=== PATIENT | female | born 1955 | race Caucasian/White ===

== ENCOUNTER 2020-07-22 08:28 | Outpatient (REF) | payer MEDICARE, SELFPAY ==
[2020-07-22 12:41] LABS: Alanine Aminotransferase 19 U/L (0-31); Albumin Level 4.5 g/dL (3.5-5.0); Alkaline Phosphatase 66 U/L (39-117); Anion Gap 12 (12-20); Aspartate Amino Transferase 18 U/L (5-31); Bilirubin Total 0.4 mg/dL (0.0-1.0); Blood Urea Nitrogen 11 mg/dL (9-16); Calcium 8.8 mg/dL (8.4-10.2); Carbon Dioxide 29 mmol/L (22-29); Chloride 105 mmol/L (96-108); Cholesterol 201 mg/dL; Estimated Glomerular Filt Rate > 60; Glucose Fasting 91 mg/dL (60-99); HDL Cholesterol 45 mg/dL; LDL Cholesterol Calculated 131 mg/dl; Potassium 4.4 mmol/l (3.3-5.1); Sodium 142 mmol/L (135-145); Total Protein 7.1 g/dL (6.5-8.0); Triglycerides 125 mg/dL
== END 2020-07-22 08:29 | disposition home or self-care (01) ==
LOC: HO.MANLR 08:28
PROVIDERS: PCP Internal Medicine; Visit Provider Internal Medicine
DX: R03.0 Elevated blood-pressure reading, without diagnosis of hypertension (principal); E78.00 Pure hypercholesterolemia, unspecified
CPT/HCPCS: 80053; 80061

== ENCOUNTER 2021-07-28 08:41 | Outpatient (REF) | payer MEDICARE, SELFPAY ==
[2021-07-28 11:53] LABS: Alanine Aminotransferase 17 U/L (0-31); Albumin Level 4.4 g/dL (3.5-5.0); Alkaline Phosphatase 59 U/L (39-117); Anion Gap 11 (12-20); Aspartate Amino Transferase 17 U/L (5-31); Bilirubin Total 0.5 mg/dL (0.0-1.0); Blood Urea Nitrogen 10 mg/dL (9-16); Calcium 9.2 mg/dL (8.4-10.2); Carbon Dioxide 29 mmol/L (22-29); Chloride 107 mmol/L (96-108); Cholesterol 186 mg/dL; Estimated Glomerular Filt Rate > 60; Glucose Fasting 84 mg/dL (60-99); HDL Cholesterol 41 mg/dL; LDL Cholesterol Calculated 126 mg/dl; Potassium 4.3 mmol/L (3.3-5.1); Sodium 143 mmol/L (135-145); Total Protein 6.8 g/dL (6.5-8.0); Triglycerides 96 mg/dL
== END 2021-07-28 08:42 | disposition home or self-care (01) ==
LOC: HO.MANLDS 08:41
PROVIDERS: PCP Internal Medicine; Visit Provider Internal Medicine
DX: R03.0 Elevated blood-pressure reading, without diagnosis of hypertension (principal); E78.00 Pure hypercholesterolemia, unspecified
CPT/HCPCS: 36415; 80053; 80061

== ENCOUNTER 2023-08-23 08:09 | Outpatient (REF) | payer MEDICARE, SELFPAY ==
[2023-08-23 13:13] LABS: MANUAL DIFF FLAG NO
[2023-08-23 13:29] LABS: Basophils Absolute Auto 0.1 X10*3/uL (0.0-0.2); Basophils Percent Auto 1.2 % (0-2); Eosinophils Absolute Auto 0.1 X10*3/uL (0.0-0.4); Eosinophils Percent Auto 2.4 % (0-4); Hematocrit 43.5 % (37.0-47.0); Hemoglobin 13.6 g/dl (12.0-16.0); Imm Gran Abs Auto 0.01 X10*3/uL (0.00-0.03); Imm Gran Pct Auto 0.2 % (0.0-0.4); Lymphocytes Absolute Auto 1.1 X10*3/uL (1.2-4.9); Lymphocytes Percent Auto 26.2 % (20-40); Mean Corpuscular HGB Conc 31.3 g/dl (31.0-35.0); Mean Corpuscular Hemoglobin 29.1 pg (27.0-33.0); Mean Corpuscular Volume 93.1 fL (80.0-98.0); Mean Platelet Volume 10.2 fL (9.4-12.3); Monocytes Absolute Auto 0.5 X10*3/uL (0.1-1.2); Monocytes Percent Auto 11.6 % (2-11); Neutrophils Absolute Auto 2.5 x10*3/uL (2.0-8.3); Neutrophils Percent Auto 58.4 % (45-73); Platelet Count 320 X10*3/uL (160-400); Red Blood Count 4.67 X10*6/uL (4.20-5.50); Red Cell Distribution Width 14.2 % (11.0-16.0); White Blood Count 4.2 X10*3/uL (4.8-10.8)
[2023-08-23 14:25] LABS: Alanine Aminotransferase 17 U/L (0-31); Albumin Level 4.3 g/dL (3.5-5.0); Alkaline Phosphatase 63 U/L (39-117); Anion Gap 11 (12-20); Aspartate Amino Transferase 21 U/L (5-31); Bilirubin Total 0.5 mg/dL (0.0-1.0); Blood Urea Nitrogen 10 mg/dL (9-16); Calcium 9.1 mg/dL (8.4-10.2); Carbon Dioxide 29 mmol/L (22-29); Chloride 107 mmol/L (96-108); Cholesterol 185 mg/dL (<200); Estimated Glomerular Filt Rate > 60; Glucose Random 79 mg/dL (60-115); HDL Cholesterol 46 mg/dL (>40); LDL Cholesterol Calculated 120 mg/dL (<100); Potassium 3.7 mmol/L (3.3-5.1); Sodium 143 mmol/L (135-145); Triglycerides 98 mg/dL (<150)
== END 2023-08-23 08:10 | disposition home or self-care (01) ==
LOC: HO.MANLDS 08:09
PROVIDERS: Visit Provider Physician Assistant
DX: Z00.00 Encounter for general adult medical examination without abnormal findings (principal); Z20.2 Contact with and (suspected) exposure to infections with a predominantly sexual mode of transmission
CPT/HCPCS: 36415; 80053; 80061; 85025

== ENCOUNTER 2024-08-28 08:23 | Outpatient (REF) | payer MEDICARE, SELFPAY ==
[2024-08-28 13:25] LABS: MANUAL DIFF FLAG NO
[2024-08-28 13:37] LABS: Basophils Absolute Auto 0.1 X10*3/uL (0.0-0.2); Basophils Percent Auto 0.8 % (0-2); Eosinophils Absolute Auto 0.1 X10*3/uL (0.0-0.4); Eosinophils Percent Auto 1.3 % (0-4); Hematocrit 43.1 % (37.0-47.0); Hemoglobin 13.7 g/dl (12.0-16.0); Imm Gran Abs Auto 0.02 X10*3/uL (0.00-0.03); Imm Gran Pct Auto 0.3 % (0.0-0.4); Lymphocytes Percent Auto 17.1 % (20-40); Mean Corpuscular HGB Conc 31.8 g/dl (31.0-35.0); Mean Corpuscular Hemoglobin 29.4 pg (27.0-33.0); Mean Corpuscular Volume 92.5 fL (80.0-98.0); Mean Platelet Volume 10.2 fL (9.4-12.3); Monocytes Absolute Auto 0.6 X10*3/uL (0.1-1.2); Monocytes Percent Auto 9.7 % (2-11); Neutrophils Absolute Auto 4.2 x10*3/uL (2.0-8.3); Neutrophils Percent Auto 70.8 % (45-73); Platelet Count 328 X10*3/uL (160-400); Red Blood Count 4.66 X10*6/uL (4.20-5.50); Red Cell Distribution Width 13.9 % (11.0-16.0)
[2024-08-28 14:07] LABS: Alanine Aminotransferase 26 U/L (0-31); Albumin Level 4.3 g/dL (3.5-5.0); Alkaline Phosphatase 60 U/L (39-117); Anion Gap 9 (12-20); Aspartate Amino Transferase 29 U/L (5-31); Bilirubin Total 0.5 mg/dL (0.0-1.0); Blood Urea Nitrogen 10 mg/dL (9-16); Calcium 9.1 mg/dL (8.4-10.2); Carbon Dioxide 29 mmol/L (22-29); Chloride 106 mmol/L (96-108); Cholesterol 188 mg/dL (<200); Estimated Glomerular Filt Rate > 60; Glucose Random 87 mg/dL (60-115); HDL Cholesterol 45 mg/dL (>40); LDL Cholesterol Calculated 120 mg/dL (<100); Sodium 140 mmol/L (135-145); Total Protein 6.9 g/dL (6.5-8.0); Triglycerides 116 mg/dL (<150)
== END 2024-08-28 08:24 | disposition home or self-care (01) ==
LOC: HO.MANLDS 08:23
PROVIDERS: Visit Provider Physician Assistant
DX: Z00.00 Encounter for general adult medical examination without abnormal findings (principal)
CPT/HCPCS: 36415; 80053; 80061; 85025

== ENCOUNTER 2025-08-28 08:16 | Outpatient (REF) | payer MEDICARE, SELFPAY ==
--- OUTSIDE RECORDS SUMMARY | 2025-08-28 08:30 | XMS_ITS | Encounter Summary ---
Author Organization [facility] Address [address] [place] [address] Phone Care Team Providers Care Steel Hanger Name Role Phone Patti Gonzalez Unavailable [phone] Sharif Bautista DO Unavailable Cheryl Travis CNM Unavailable Roscoe Low DO Unavailable Kelly Rush SUPERVISOR COMMISSARY PRODUCTION Unavailable Carmen Rodríguez SUPERVISOR COMMISSARY PRODUCTION Unavailable Nathaly Don MD Unavailable Denice Morales SUPERVISOR COMMISSARY PRODUCTION Unavailable [phone] Sharif Bautista DO Primary Care Provider [phone] Encounter Details Date Type Department Care Team (Late st Contact Info) Description 07/20/2018 Ancillary Orders Virtual Department [address] [place] [address] Sharif Bautista DO [address] [facility] [address] [place] [address] Screening for osteoporosis Social History Tobacco Use Types Packs/Day Years Used Date Smoking Tobacco: Never Assessed Comments No Sex and Gender Information Value Date Recorded Sex Assigned at Not on file Legal Sex Female 9:58 PM EDT Gender Identity Not on file Sexual Orientation Not on file documented as of this encounter Plan of Treatment Not on file documented as of this encounter Visit Diagnoses Diagnosis Screening for osteoporosis Special screening for osteoporosis documented in this encounter Care Teams Steel Hanger Relationship Specialty Start Date End Date Sharif Bautista DO [address] [place] [address] [email or web address] PCP - General Internal Medicine 08/31/17 Patti Gonzalez PA [address] [place] [address] Historical LMR Provider 07/19/17 2 Sharif Bautista DO [address] [place] [address] [email or web address] Historical LMR Provider 07/19/17 Cheryl Travis CNM [address] [place] [address] Historical LMR Provider 07/19/17 10/11/21 Roscoe Low DO [address] [place] [address] [facility], [place] [address] Historical LMR Provider 07/19/17 10/11/21 Kelly Rush NP [address] [place] [phone] Historical LMR Provider 07/19/17 2 Carmen Rodríguez NP [address] [place] [address] [email or web address] Historical LMR Provider 07/19/17 2 Nathaly Don MD [address] [place] [address], [facility] [address] [place] [address] [email or web address] Historical LMR Provider 07/19/17 Denice Morales NP [address] [place] [address] Historical LMR Provider 07/19/17 2 documented as of this encounter Additional Source Comments The information contained in this document represents components of the legal health record. It is not the complete legal health record.[facility]
--- OUTSIDE RECORDS SUMMARY | 2025-08-28 08:30 | XMS_ITS | Encounter Summary ---
Author Organization [facility] Address [address] [place] [address] Phone Care Team Providers Care Metal Fabricating Shop Helper Name Role Phone Sharif Bautista DO Unavailable Nathaly Don MD Unavailable Sharif Bautista DO Primary Care Provider [phone] Encounter Details Date Type Department Care Team (Late st Contact Info) Description 03/18/2022 Procedure Pass [facility], [facility] [address] [place], [place] [id number] Social History Tobacco Use Types Packs/Day Years Used Date Smoking Tobacco: Never Smokeless Tobacco: Never Alcohol Use Standard Drinks/Week Comments Yes 1 (1 standard drink = 0.6 oz pur e alcohol) 1-2 per month Comments No Sex and Gender Information Value Date Recorded Sex Assigned at Not on file Legal Sex Female 9:58 PM EDT Gender Identity Not on file Sexual Orientation Not on file documented as of this encounter Plan of Treatment Not on file documented as of this encounter Visit Diagnoses Not on filedocumented in this encounter Care Teams Metal Fabricating Shop Helper Relationship Specialty Start Date End Date Sharif Bautisat DO PCP - General Internal Medicine 08/31/17 Sharif Bautista DO Historical LMR Provider 07/19/17 Nathaly Don MD [address] [place] [address], [place] [address] [email or web address] Historical LMR Provider 07/19/17 documented as of this encounter Additional Source Comments The information contained in this document represents components of the legal health record. It is not the complete legal health record.[facility]
--- OUTSIDE RECORDS SUMMARY | 2025-08-28 08:30 | XMS_ITS | Encounter Summary ---
Author Organization [facility] Address [address] [place] [address] Phone Care Team Providers Care Bleaching Machine Operator Name Role Phone Sharif Bautista DO Unavailable Nathaly Don MD Unavailable Sharif Bautista DO Primary Care Provider [phone] Encounter Details Date Type Department Care Team (Late st Contact Info) Description 08/12/2023 Transcribe Orders Virtual Department [address] [place] [address] Sharif Bautista DO [address] [facility] [place] [address] [place] [address] [email or web address] Breast screening (Primary Dx) Social History Tobacco Use Types Packs/Day Years Used Date Smoking Tobacco: Never Smokeless Tobacco: Never Alcohol Use Standard Drinks/Week Comments Yes 1 (1 standard drink = 0.6 oz pur e alcohol) 1-2 per month Education Answer Date Recorded Are you interested in more education? Not on mainor e 01/29/2023 Are you concerned about learning? Not on file 01/29/2023 No 01/29/2023 No 01/29/2023 Digital Access Answer Date Recorded No 02/26/2023 No 02/26/2023 Reliable internet access at home? Not on file 02/26/2023 Device with a working camera? Not on file Comments No Sex and Gender Information Value Date Recorded Sex Assigned at Not on file Legal Sex Female 9:58 PM EDT Gender Identity Not on file Sexual Orientation Not on file documented as of this encounter Plan of Treatment Not on file documented as of this encounter Results * BI MAMMOGRAM SCREENING WITH TOMOSYNTHESIS WITH CAD (BILATERAL) (01/19/2024 8:51 AM EDT) Anatomical Region Laterality Modality Breast Left, Breast Right, Breast Bilateral Bila teral Mammography 01/19/2024 3:47 PM EDT Impressions 01/19/2024 3:49 PM EDT No mammographic evidence of malignancy in either breast. Annual screening mammography is recommended. BI-RADS 2 BENIGN The patient will be notified of the results and recommendations. Narrative 01/19/2024 3:49 PM EDT BI MAMMOGRAM SCREENING WITH TOMOSYNTHESIS WITH CAD (BILATERAL) Additional patient information: Screening. COMPARISON: Comparison is made with relevant prior imaging. Breast composition: The breast tissue is heterogeneously dense which may obscure small masses. FINDINGS: There are innumerable scattered punctate, amorphous and rim type calcifications present bilaterally, stable in appearance. No abnormal masses, suspicious calcifications, or other significant findings are identified mammographically in either breast. Procedure Note Cordelia Vernon MD - 01/19/2024 BI MAMMOGRAM SCREENING WITH TOMOSYNTHESIS WITH CAD (BILATERAL) Additional patient information: Screening. COMPARISON: Comparison is made with relevant prior imaging. Breast composition: The breast tissue is heterogeneously dense which mayobscure small masses. FINDINGS: There are innumerable scattered punctate, amorphous and rim typecalcifications present bilaterally, stable in appearance. No abnormal masses, suspicious calcifications, or other significantfindings are identified mammographically in either breast. IMPRESSION: No mammographic evidence of malignancy in either breast. Annual screening mammography is recommended. BI-RADS 2 BENIGN The patient will be notified of the results and recommendations. us Sharif A Bigda DO IMG MG EXAMS Final Result documented in this encounter Visit Diagnoses Diagnosis Breast screening- Primary Breast screening, unspecified Breast screening Breast screening, unspecified documented in this encounter Care Teams Bleaching Machine Operator Relationship Specialty Start Date End Date Sharif Bautista DO [email or web address] PCP - General Internal Medicine 08/31/17 ZeusSharif pittman DO Historical LMR Provider 07/19/17 aNthaly Don MD [address] [place] [address], [address] [place] [address] [email or web address] Historical LMR Provider 07/19/17 documented as of this encounter Additional Source Comments The information contained in this document represents components of the legal health record. It is not the complete legal health record.[facility]
--- OUTSIDE RECORDS SUMMARY | 2025-08-28 08:30 | XMS_ITS | Encounter Summary ---
Author Organization [facility] Address [address] [place] [address] Phone Care Team Providers Care Inspector Barrel Name Role Phone Patti Gonzalez Unavailable [phone] Sharif Bautista DO Unavailable Cheryl Travis CNM Unavailable Roscoe Low DO Unavailable [phone] Kelly Rush CAM MAKER Unavailable Carmen Rodríguez CAM MAKER Unavailable Nathaly Don MD Unavailable Denice Morales CAM MAKER Unavailable [phone] Sharif Bautista DO Primary Care Provider [phone] Encounter Details Date Type Department Care Team (Late st Contact Info) Description 12/05/2018 Ancillary Orders Virtual Department [address] [place] [address] Sharif Bautista DO [address] [facility] [place] [address] [place] [address] Osteopenia, unspecified location Social History Tobacco Use Types Packs/Day Years Used Date Smoking Tobacco: Never Assessed Comments No Sex and Gender Information Value Date Recorded Sex Assigned at Not on file Legal Sex Female 9:58 PM EDT Gender Identity Not on file Sexual Orientation Not on file documented as of this encounter Plan of Treatment Not on file documented as of this encounter Results * BD DXA AXIAL (SPINE) WITH HIP (12/06/2018 9:19 AM EST) Anatomical Region Laterality Modality Bone Density Bone Density 12/06/2018 9:40 AM EST Impressions 12/06/2018 9:44 AM EST Continued lumbar spine osteopenia with a statistically significant increase in bone density since the prior exam. New right hip osteoporosis. Left hip osteopenia (previously osteoporotic with a statistically significant increase in bone density since the prior exam). POS - [id number] Narrative 12/06/2018 9:44 AM EST COMPARISON: 05/11/2016. BONE DENSITY FINDINGS: History: This is a 63-year-old postmenopausal female with osteopenia. Evaluation of the lumbar spine and hips was performed. L2 excluded due to endplate sclerosis. Otherwise imaging felt to be technically adequate. Stable mild mid lumbar levoscoliosis. Total bone mineral density in the L1, L3 and L4 vertebral bodies was calculated at 0.811 gm/cm2 with a T-score of -2.2 falling within the WHO classification of osteopenia. Z-score of -0.4.Fracture risk increased. 3.2% increase in bone density since the prior exam which is significant. Total bone mineral density in the right hip was calculated at 0.637 gm/cm2 with a T-score of -2.5 falling within the WHO classification of osteoporosis. Z-score of -1.2. High fracture risk. Total bone mineral density in the left hip was calculated at 0.677 gm/cm2 with a T-score of -2.2 falling within the WHO classification of osteopenia. Z-score of -0.9. Fracture risk increased. 11.3% increase in bone density since the prior exam which is significant. Procedure Note Royce Moscoso MD - 12/06/2018 COMPARISON: 05/11/2016. BONE DENSITY FINDINGS: History: This is a 63-year-old postmenopausal female with osteopenia. Evaluation of the lumbar spine and hips was performed. L2 excluded due toendplate sclerosis. Otherwise imaging felt to be technically adequate.Stable mild mid lumbar levoscoliosis. Total bone mineral density in the L1, L3 and L4 vertebral bodies wascalculated at 0.811 gm/cm2 with a T-score of -2.2 falling within the WHOclassification of osteopenia. Z-score of -0.4.Fracture risk increased.3.2% increase in bone density since the prior exam which is significant. Total bone mineral density in the right hip was calculated at 0.637 gm/sy0dboj a T-score of -2.5 falling within the WHO classification ofosteoporosis. Z-score of -1.2. High fracture risk. Total bone mineral density in the left hip was calculated at 0.677 gm/fq7xbsd a T-score of -2.2 falling within the WHO classification ofosteopenia. Z-score of - 0.9. Fracture risk increased. 11.3% increasein bone density since the prior exam which is significant. IMPRESSION: Continued lumbar spine osteopenia with a statistically significantincrease in bone density since the prior exam. New right hiposteoporosis. Left hip osteopenia (previously osteoporotic with astatistically significant increase in bone density since the priorexam). POS - [id number] Sharif Bautista DO IMG BD BONE DENSITY DEXA Final R esult documented in this encounter Visit Diagnoses Diagnosis Osteopenia, unspecified location Osteopenia, unspecified location documented in this encounter Care Teams Inspector Barrel Relationship Specialty Start Date End Date Shar[place] [address] [email or web address] PCP - General Internal Medicine 08/31/17 Patit [place] [address] Historical LMR Provider 07/19/17 2 Sharif Bautista DO [address] [place] [address] Historical LMR Provider 07/19/17 Cheryl Travis CNM [address] [address] Historical LMR Provider 07/19/17 10/11/21 Roscoe Low DO [address] [place] [address] [facility], [place] [address] Historical LMR Provider 07/19/17 10/11/21 Kelly Rush NP [address] [place] [phone] Historical LMR Provider 07/19/17 2 Carmen Rodríguez NP [address] [place] [address] [email or web address] Historical LMR Provider 07/19/17 2 Nathaly Don MD [address] [place] [address] Historical LMR Provider 07/19/17 Denice Morales NP [address] [place] [address] Historical LMR Provider 07/19/17 2 documented as of this encounter Additional Source Comments The information contained in this document represents components of the legal health record. It is not the complete legal health record.[facility]
--- OUTSIDE RECORDS SUMMARY | 2025-08-28 08:30 | XMS_ITS | Encounter Summary ---
Author Organization [facility] Address [address] [place] [address] Phone Care Team Providers Care Certified Nursing Assistant Name Role Phone Patti Gonzalez Unavailable [phone] Sharif Bautista DO Unavailable Cheryl Travis CNM Unavailable Roscoe Low DO Unavailable Kelly Rush RETAIL PRODUCT DEMO SPECIALIST Unavailable Carmen Rodríguez RETAIL PRODUCT DEMO SPECIALIST Unavailable Nathaly Don MD Unavailable Denice Morales RETAIL PRODUCT DEMO SPECIALIST Unavailable [phone] Unknown, Unknown Primary Care Provider Sharif Mcconnell DO Primary Care Provider [phone] Encounter Details Date Type Department Care Team (Late st Contact Info) Description 07/24/2017 Ancillary Orders [facility], [facility] [address] [place] [address] Sharif Bautista DO [address] [facility] [address] [place], [place] [id number] Visit for screening mammogram Social History Tobacco Use Types Packs/Day Years Used Date Smoking Tobacco: Never Assessed Comments Unknown Sex and Gender Information Value Date Recorded Sex Assigned at Not on file Legal Sex Female 9:58 PM EDT Gender Identity Not on file Sexual Orientation Not on file documented as of this encounter Plan of Treatment Not on file documented as of this encounter Results * BI MAMMOGRAM SCREENING WITH TOMOSYNTHESIS WITH CAD (BILATERAL) (08/31/2017 9:15 AM EST) Anatomical Region Laterality Modality Breast Left, Breast Right, Breast Bilateral Bila teral Mammography 08/31/2017 10:4 1 AM EST Impressions 08/31/2017 10:45 AM EST Normal negative. Annual screening is recommended. Patient notified by letter. BI-RADS CATEGORY: 1 - Negative. DENSITY: There are scattered fibroglandular densities. POS: [id number] Narrative 08/31/2017 10:45 AM EST Screening Mammogram, bilateral with utilization of computer aided detection and tomosynthesis as well as 2-D C view imaging. Comparison: Dating back to 2013 and the most recent prior examination dated 16. Findings: No suspicious masses or suspicious clustered microcalcifications are present. No architectural distortion or significant asymmetry is present. Breasts are composed of scattered fibroglandular elements. Procedure Note Felice Marin MD - 08/31/2017 Screening Mammogram, bilateral with utilization of computer aideddetection and tomosynthesis as well as 2-D C view imaging. Comparison: Dating back to 2013 and the most recent prior examinationdated 16. Findings: No suspicious masses or suspicious clustered microcalcificationsare present. No architectural distortion or significant asymmetry ispresent. Breasts are composed of scattered fibroglandular elements. IMPRESSION: Normal negative. Annual screening is recommended. Patient notified by letter. BI-RADS CATEGORY: 1 - Negative. DENSITY: There are scattered fibroglandular densities. POS: [id number] us Sharif A Bigda DO IMG MG EXAMS Final Result documented in this encounter Visit Diagnoses Diagnosis Visit for screening mammogram Visit for screening mammogram documented in this encounter Care Teams Certified Nursing Assistant Relationship Specialty Start Date End Date Unknown, Unknown, [address] [place] [address] PCP - General 07/24/17 08/30/17 Sharif Bautista DO [address] [place] [address] PCP - General Internal Medicine 08/31/17 Patti Gonzalez PA [address] [place] [address] Historical LMR Provider 07/19/17 2 Sharif Bautista DO [address] [place] [address] Historical LMR Provider 07/19/17 Cheryl Travis CNM [address] [place] [address] Historical LMR Provider 07/19/17 10/11/21 Roscoe Low DO [address] [place] [address] [facility], [place] [address] Historical LMR Provider 07/19/17 10/11/21 Kelly Rush NP [address] [place] [phone] Historical LMR Provider 07/19/17 2 Carmen Rodríguez NP [address] [place] [address] [email or web address] Historical LMR Provider 07/19/17 2 Nathaly Don MD [address] [place] [address], [address] [place] [address] [email or web address] Historical LMR Provider 07/19/17 Denice Morales NP [address] [place] [address] Historical LMR Provider 07/19/17 2 documented as of this encounter Additional Source Comments The information contained in this document represents components of the legal health record. It is not the complete legal health record.[facility]
--- OUTSIDE RECORDS SUMMARY | 2025-08-28 08:30 | XMS_ITS | Encounter Summary ---
Author Organization [facility] Address [address] [place] [address] Phone Care Team Providers Care Reservation Manager Name Role Phone Sharif Bautista DO Unavailable Nathaly Don MD Unavailable Sharif Bautista DO Primary Care Provider [phone] Encounter Details Date Type Department Care Team (Late st Contact Info) Description 08/12/2023 Procedure Pass [facility], [place], [facility] [address] [place] [address] Social History Tobacco Use Types Packs/Day Years [...] on filedocumented in this encounter Care Teams Reservation Manager Relationship Specialty Start Date End Date Sharif Bautista DO [email or web address] PCP - General Internal Medicine 08/31/17 ZeusSharif pittman DO Historical LMR Provider 07/19/17 Nathaly Don MD [address] [place] [address], [facility] [address] [place] [address] [email or web address] Historical LMR Provider 07/19/17 documented as of this encounter Additional Source Comments The information contained in this document represents components of the legal health record. It is not the complete legal health record.[facility]
--- OUTSIDE RECORDS SUMMARY | 2025-08-28 08:30 | XMS_ITS | Encounter Summary ---
Author Organization [facility] Address [address] [place] [address] Phone Care Team Providers Care Columnist/Commentator Name Role Phone Patti Gonzalez Unavailable [phone] Sharif Bautista DO Unavailable Cheryl Travis CNM Unavailable Roscoe Low DO Unavailable Kelly Rush RADIAL SAW OPERATOR Unavailable Carmen Rodríguez RADIAL SAW OPERATOR Unavailable Nathaly Dno MD Unavailable Denice Morales RADIAL SAW OPERATOR Unavailable [phone] Sharif Bautista DO Primary Care Provider [phone] Encounter Details Date Type Department Care Team (Late st Contact Info) Description 06/04/2020 Procedure Pass [facility], [facility] [address] [place] [address] Social History Tobacco Use Types Packs/Day Years [...] on filedocumented in this encounter Care Teams Columnist/Commentator Relationship Specialty Start Date End Date Sharif Bautista DO [address] [place] [address] PCP - General Internal Medicine 08/31/17 Patti Gonzalez PA [address] [place] [address] Historical LMR Provider 07/19/17 2 Sharif Bautista DO [address] [place] [address] [email or web address] Historical LMR Provider 07/19/17 Cheryl Travis CNM [address] [place] [address] Historical LMR Provider 07/19/17 10/11/21 Roscoe Low DO [address] [place] [address] [facility], [place] [address] Historical LMR Provider 07/19/17 10/11/21 Kelly Rush, RADIAL SAW OPERATOR [address] [place] [phone] Historical LMR Provider 07/19/17 2 Carmen Rodríguez RADIAL SAW OPERATOR [address] [place] [address] [email or web address] Historical LMR Provider 07/19/17 2 Nathaly Don MD [address] [place] [address], [facility] [address] [place] [address] [email or web address] Historical LMR Provider 07/19/17 Denice Morales NP [address] [place] [address] Historical LMR Provider 07/19/17 2 documented as of this encounter Additional Source Comments The information contained in this document represents components of the legal health record. It is not the complete legal health record.[facility]
--- OUTSIDE RECORDS SUMMARY | 2025-08-28 08:30 | XMS_ITS | Encounter Summary ---
Author Organization [facility] Address [address] [place] [address] Phone Care Team Providers Care Crop Puller Name Role Phone Patti Gonzalez Unavailable [phone] Sharif Bautista DO Unavailable Cheryl Travis CNM Unavailable Roscoe Low DO Unavailable [phone] Kelly Rush JAVA TECH Unavailable Carmen Rodríguez JAVA TECH Unavailable Nathaly Don MD Unavailable Denice Morales JAVA TECH Unavailable [phone] Sharif Bautista DO Primary Care Provider [phone] Encounter Details Date Type Department Care Team (Late st Contact Info) Description 04/24/2020 Procedure Pass [facility] Endoscopy Admitting Dept Virtual Department [address] [place] [address] Social History Tobacco Use Types Packs/Day Years [...] on filedocumented in this encounter Care Teams Crop Puller Relationship Specialty Start Date End Date Sharif Bautista DO [address] [place] [address] PCP - General Internal Medicine 08/31/17 Patti Gonzalez PA [address] [place] [address] Historical LMR Provider 07/19/17 2 Sharif Bautista DO [address] [place] [address] [email or web address] Historical LMR Provider 07/19/17 Cheryl Travis CNM [address] [place] [address] Historical LMR Provider 07/19/17 10/11/21 Roscoe Low DO [address] [place] [address] Orthopedics & Sports Medicine, [place] [address] Historical LMR Provider 07/19/17 10/11/21 Kelly Rush NP [address] [place] [phone] Historical LMR Provider 07/19/17 2 Carmen Rodríguez NP [address] [place] [address] [email or web address] Historical LMR Provider 07/19/17 2 Nathaly Don MD [address] [place] [address], [facility] [address] [place] [address] [email or web address] Historical LMR Provider 07/19/17 Denice Morales NP [address] [place] [address] Historical LMR Provider 07/19/17 2 documented as of this encounter Additional Source Comments The information contained in this document represents components of the legal health record. It is not the complete legal health record.[facility]
--- OUTSIDE RECORDS SUMMARY | 2025-08-28 08:31 | XMS_ITS | Clinical Summary ---
Author Organization [facility] Address [address] [place] [address] Phone Care Team Providers Care Calciminer Name Role Phone Lily Rachel Ruggiero DO Unavailable Nathaly Don MD Unavailable Rachel Arshad DO Primary Care Provider [phone] Allergies No known active allergies Medications lovastatin (ALTOPREV) 40 MG 24 hr tablet 40 mg nightly at bedtime. 1 tablet at bedtime Orally Once a day Active lovastatin (MEVACOR) 40 MG tablet Take 40 mg by mouth nightly at bedtime. 3 Active clobetasol (TEMOVATE) 0.05 % ointmentIndicat ions:Lichen sclerosus Apply topically once a week. Use a pea sized amount. 30 g 1 4 Active Active Problems Problem Noted Date Diagnosed Date Lichen sclerosus Overview (08/18/2022): Patchy hypopigmentation with clitoral regression Unchanged in 2021 Assessment & Plan (01/24/2024 10:42 AM EDT): Stable compared to prior exam. Reviewed where to apply Clobetasol. Refill sent. Assessment & Plan (08/18/2022 10:26 AM EST): 20 Assessment & Plan (06/18/2020 10:17 AM EDT): No sxs, no areas needing bx recommend continuing weekly topical steroid ointemnt and check ups at least once a year Herpes Encounters Date Type Department Care Team Description 05/30/2025 8:30 AM EDT - 05/30/2025 9:00 AM EDT Surgery [facility] Endoscopy Admitting Dept Virtual Department [address] [place] [address] Meagan Dubois MD COLONOSCOPY 05/30/2025 8:12 AM EDT Anesthesia Event [facility] Endoscopy Admitting Dept Virtual Department [address] [place] [address] Rachel Ramires MD 05/30/2025 7:17 AM EDT - 05/30/2025 9:25 AM EDT Hospital Encounter [facility] Admitting Dept Virtual Department [address] [place] [address] Meagan Dubois MD Discharge Disposition: Home or Self Care 05/30/2025 Procedure Pass [facility] Endoscopy Admitting Dept Virtual Department [address] [place] [address] from Last 3 Months Immunizations Immunization Administration Dates Next Due INFLUENZA, SPLIT VIRUS, TRIVALENT PF 06/16/2017, 05/19/2016 Influenza High-Dose Quadriva lent Preservative Free IM 07/28/2022,06/03/2021,05/21/2020 Influenza Quadrivalent Preservative Free IM 06/05 Influenza Quadrivalent w/ Preservative IM 2018,05/18/2018 Influenza, Unspecified Formulation 07/04/2023 Pneumococcal conjugate PCV13 07/19/2018 Pneumococcal polysaccharide PPSV23 08/14/2019 Tdap 07/19/2018 Zoster recombinant 07/21/2020,05/21/2020 Family History Medical History Relation Comments Cancer Mother Hypertension Mother Cancer Sibling Breast cancer Neg Hx Relation Status Comments Mother Sibling Social History Tobacco Use Types Packs/Day Years Used Date Smoking Tobacco: Never Smokeless Tobacco: Never Alcohol Use Standard Drinks/Week Comments Not Currently 0 (1 standard drink = 0.6 oz pur e alcohol) 3-4 per month Education Answer Date Recorded Are you interested in more education? Not on mainor e 01/29/2023 Are you concerned about learning? Not on file 01/29/2023 No 01/29/2023 No 01/29/2023 Digital Access Answer Date Recorded No 02/26/2023 No 02/26/2023 Reliable internet access at home? Not on file 02/26/2023 Device with a working camera? Not on file Intimate Partner Violence Answer Date R ecorded Are you denied basic needs s uch as food, clothing, or medical care? No 05/30/2025 In the past 12 months have y ou been in a relationship with a person who hurts, threatens, or tries to control you? No 05/30/2025 Are you denied basic needs s uch as food, clothing, or medical care? No 05/30/2025 In the past 12 months have y ou been in a relationship with a person who hurts, threatens, or tries to control you? No 05/30/2025 Comments No Sex and Gender Information Value Date Recorded Sex Assigned at Not on file Legal Sex Female 9:58 PM EDT Gender Identity Not on file Sexual Orientation Not on file Last Filed Vital Signs Vital Sign Reading Time Taken Comments Blood Pressure 102/56 05/30/2025 8:35 AM EDT Pulse 72 05/30/2025 8:35 AM EDT Temperature 36.1 C (96.9 F) 05/30/2025 8:35 AM EDT Respiratory Rate 11 05/30/2025 8:35 AM EDT Oxygen Saturation 100% 05/30/2025 8:35 AM EDT Inhaled Oxygen Concentration 20.9% 04/24/2020 9 :24 AM EDT Weight 55.3 kg (122 lb) 05/23/2025 9:03 AM EDT Height 167.6 cm (5' 6 ) 05/23/2025 9:03 AM EDT Body Mass Index 19.69 05/23/2025 9:03 AM EDT Plan of Treatment Health Maintenance Due Date Last Done Comments DEPRESSION SCREENING 1965 HEPATITIS C SCREENING 1971 COLOGUARD 1998 FIT TEST 1998 FOBT 1998 SIGMOIDOSCOPY 1998 VIRTUAL COLONOSCOPY 1998 INFLUENZA VACCINE (#1) 2025 , 07/04/2023, 06/23/2023, Additional history exists COVID-19 VACCINE (2024- season) 2025 06/02/2024, 07/28/2022, 08/27/2021, Additional history exists MAMMOGRAM 01/18/2026 01/19/2024, 04/03, 06/17/2020, Additional history exists LIPID PANEL 08/21/2027 08/21/2022, 09/01/2010 RSV VACCINE (1 - 1-dose 75+ series) 2028 Adult Td,Tdap Booster 07/19/2028 07/19/2018 COLONOSCOPY 05/30/2030 05/30/2025, 04/24/2020 COLORECTAL CANCER SCREENING 05/30/2030 OSTEOPOROSIS SCREENING INITIAL (ONE-TIME) Completed 12/06/2018 PNEUMOCOCCAL VACCINES (50+ years) Completed 08/14/2019, 07/19/2018 ZOSTER VACCINES Completed 07/21/2020, 05/21/2020 SMOKING STATUS SCREENING (Once After 26 Yrs) Completed 05/30/2025 HEPATITIS A VACCINES Aged Out No long er eligible based on patient's age to complete this topic HIB VACCINES Aged Out No longer eligi ble based on patient's age to complete this topic MENINGOCOCCAL VACCINES (ACWY) Aged Out No longer eligible based on patient's age to complete this topic MENINGOCOCCAL VACCINES (B) Aged Out N o longer eligible based on patient's age to complete this topic Medical Devices Implanted Type Area Anesthesiology Faculty Device Identifier Shelf Expiration Date Model / Serial / Lot Lt Ankle Plate And Screws Procedures Procedure Name Priority Date/Time Associated Diagnosis Comments WV COLSC FLX W/RMVL OF TUMOR POLYP LESION SNARE TQ 05/30/2025 8:10 AM EDT Hx of colonic polyp Special Needs DIRECT WV COLONOSCOPY W/BIOPSY SINGLE/MULTIPLE 05/30/2025 8:10 AM EDT Hx of colonic polyp Special Needs DIRECT WV COLONOSCOPY FLX DX W/COLLJ SPEC WHEN PFRMD 05/30/2025 8:10 AM EDT Hx of colonic polyp Special Needs DIRECT ENDOSCOPY, COLON 05/30/2025 8:06 AM EDT ANATOMIC PATHOLOGY Routine 05/30/2025 12 :00 AM EDT BI MAMMOGRAM SCREENING WITH TOMOSYNTHESIS WITH CAD (BILATERAL) Routine 01/19/2024 8:51 AM EDT Breast screening LIPID PANEL Routine 08/21/2022 8:36 AM EST Routine general medical examination at a health care facility BD DXA AXIAL (SPINE) WITH HIP Routine 12/06/2018 9:19 AM EST Osteopenia, unspecified location from Last 3 Months or Most Recently Relevant to Health Maintenance Results * ENDOSCOPY, COLON (05/30/2025 8:06 AM EDT) Narrative Transcriptions Meagan Dubois MD - 05/30/2025 8:06 AM EDT [facility] Patient Name: Wu Calvo Attending MD:: MEAGAN DUBOIS MD, Procedure Date: 05/30/2025 8:06 AM Date of : 1955 Age: 70 Admit Type: Outpatient Gender: Female Room: [place] [address] Referring MD: RACHEL ARSHAD DO Exam Type: Colonoscopy Indications: High risk colon cancer surveillance: Personalhistory of colonic polyps, Last colonoscopy: April 2020 Medications: Propofol per Anesthesia Procedure: Informed consent was obtained from the patientafter discussion of the indications, limitations, alternatives, benefits, and risks of the procedure. Risks specifically discussed include but are not limited to medication reactions, missed lesions, bleeding, perforation, or the need for emergent surgery. Throughout the procedure, the patient's blood pressure, pulse, end-tidal CO2, and oxygensaturations were monitored continuously. The Colonoscope was introduced through the anus and advanced to the terminal ileum, with identificationof the appendiceal orifice and IC valve. The terminal ileum, ileocecal valve, appendiceal orifice, and rectum were photographed. The colonoscopy was performed without difficulty. The patient tolerated the procedure well. The quality of the bowel preparation was excellent. The bowel preparationused was GoLYTELY via split dose instruction. Complications: No immediate complications. Estimated blood loss:None. Findings: The perianal and digital rectal examinations were normal. Pertinent negatives include no palpablerectal lesions. Internal hemorrhoids were found duringretroflexion. The hemorrhoids were small. A few small-mouthed diverticula were found in the sigmoid colon. A small polyp was found in the descending colon.The polyp was sessile. The polyp was removed with acold snare. Resection and retrieval were complete. The exam was otherwise without abnormality. The terminal ileum appeared normal. Retroflexion in the right colon was performed. Impression: - Internal hemorrhoids. - Diverticulosis in the sigmoid colon. - One small polyp in the descending colon, removed with a cold snare. Resected and retrieved. - The examination was otherwise normal. - The examined portion of the ileum was normal. Recommendation: - If the pathology report reveals adenomatous tissue, then repeat the colonoscopy for surveillance in 5 years. - If the pathology report reveals no adenomatous tissue, then repeatthe colonoscopy for surveillance 7-8 years. MEAGAN DUBOIS MD 05/30/2025 8:36:05 AM This report has been signed electronically. Number of Addenda: 0 Note Initiated On: 05/30/2025 8:06 AM Procedure Code(s): --- Professional --- 01819, Colonoscopy, flexible; with removal of tumor(s), polyp(s), or other lesion(s) by snare technique --- Technical --- 76202, Colonoscopy, flexible; with removal of tumor(s), polyp(s), or other lesion(s) by snare technique Diagnosis Code(s): --- Professional --- Z86.010, Personal history of colonic polyps K64.8, Other hemorrhoids D12.4, Benign neoplasm of descending colon K57.30, Diverticulosis of large intestine without perforation or abscess without bleeding --- Technical --- Z86.010, Personal history of colonic polyps K64.8, Other hemorrhoids D12.4, Benign neoplasm of descending colon K57.30, Diverticulosis of large intestine without perforation or abscess without bleeding CPT copyright 2021 [employer]. All rights reserved. The codes documented in this report are preliminary and upon memory care program resident reviewmay be revised to meet current compliance requirements. Procedure Date: 05/30/2025 8:06:[address] [place] [address] [id number] us Rachel A Bigda DO GI PROCEDURE ORDERABLES Final Re sult * Anatomic Pathology (Non-MGB) (05/30/2025 12:00 AM EDT) Report [address] [address] Termite Control Servicer: Bernardo Centeno MD Surgical Pathology Report FINAL PATHOLOGIC DIAGNOSIS: DESCENDING COLON, POLYP: Adenomatous polyp. Electronically Signed Out By Charissa Pearson MD By his/her signature above, the pathologist listed as making the Final Diagnosis certifies that he/she has personally reviewed this case and confirmed or corrected the diagnosis. CLINICAL HISTORY History of colonic polyp [Z86.0100] SPECIMENS SUBMITTED: A: DESCENDING COLON, POLYP GROSS DESCRIPTION DESCENDING COLON, POLYP: Received in formalin is a 1.2 x 0.3 x 0.1 cm linear portion of toscano-pink mucosal tissue which exhibits a 0.3 x 0.2 x 0.2 cm erythematous polyp and a submitted in toto in a single cassette labeled A1. Grossed by: BEV Lee, PA([facility]) [id number] 05/30/2025 Grossing Staff: [id number] Patient Name: WU CALVO : 1955 (Age: 70) Sex: F Institution: [facility] Location: [facility] Date of Operation: 05/30/2025 Date of Reported: 05/31/2025 14:25 Results To: Meagan Dubois MD, AB Rachel Arshad DO, BS [facility] Clinical History History of colonic polyp [Z86.0100] [facility] Final Diagnosis DESCENDING COLON, POLYP: Adenomatous polyp. [facility] Gross Description DESCENDING COLON, POLYP: Received in formalin is a 1.2 x 0.3 x 0.1 cm linear portion of toscano-pink mucosal tissue which exhibits a 0.3 x 0.2 x 0.2 cm erythematous polyp and a submitted in toto in a single cassette labeled A1. Grossed by: BEV Lee, PA(ASCP) [facility] Conversion Type (Conversion Source) 05/30/2025 05/30/2025 10:28 AM EDT us Meagan Dubois MD LAB PATHOLOGY ORDERABLES E dited Result - Final [address] [address] * BI MAMMOGRAM SCREENING WITH TOMOSYNTHESIS WITH [...] notified of the results and recommendations. us Rachel A Bigda DO IMG MG EXAMS Final Result * (ABNORMAL) Lipid panel (08/21/2022 8:36 AM EST) HDL 48 mg/dL [facility] Comment: Interpretation <40 mg/dL: Low HDL cholesterol (major risk factor for CHD) Greater than or equal to 60 mg/dL: High HDL cholesterol ( negative risk factor for CHD) HDL - cholesterol is affected by a number of factors, e.g. smoking, excerise, hormones, sex and age. CHOLESTEROL 201 0 - 240 mg/dL [facility] TRIGLYCERIDES 98 30 - 160 mg/dL [facility] LDL 133(H) 50 - 129 mg/dL [facility] Comment: LDL levels in terms of risk for coronary heart disease: <100 mg/dL: Optimal 100-129 mg/dL: Near or above optimal 130-159 mg/dL: Borderline high 160-189 mg/dL: High >190 mg/dL: Very High CARDIAC RISK RATIO 4.2 3.3 - 4.4 [facility] Blood 08/21/2022 8:36 AM EST 08/21/2022 8:39 AM EST us Rachel A Bigda DO LAB BLOOD BKR ORDERABLES Final R esult [facility] [address] [place] [address] * BD DXA AXIAL (SPINE) WITH HIP [...] the right hip was calculated at 0.637 gm/fd1mgrp a T-score of -2.5 falling within the WHO classification ofosteoporosis. Z-score of -1.2. High fracture risk. Total bone mineral density in the left hip was calculated at 0.677 gm/qm1pkqg a T-score of -2.2 falling within the [...] density since the priorexam). POS - [id number] us Rachel A Bigda DO IMG BD BONE DENSITY DEXA Final R esult from Last 3 Months or Most Recently Relevant to Health Maintenance Insurance [place]AC[place] MEDICARE PPO BLUE REPLACEMENT MEDICARE PPO BLUE REPLACEMENT MEDICARE PPO BLUE [place] [address] [address] MEDICARE PPO BLUE [place] [address] [address] MEDICARE PPO BLUE [place] [address] [place] [address] MEDICARE PPO BLUE REPLACEMENT [facility] MEDICARE PPO BLUE REPLACEMENT [facility] MEDICARE PPO BLUE REPLACEMENT Care Teams Calciminer Relationship Specialty Start Date End Date Rachel Arshad DO PCP - General Internal Medicine 08/31/17 Rachel Arshad DO Historical LMR Provider 07/19/17 Nathaly Don MD [address] [place] [address] Historical LMR Provider 07/19/17 Additional Source Comments The information contained in this document represents components of the legal health record. It is not the complete legal health record.[facility]
--- OUTSIDE RECORDS SUMMARY | 2025-08-28 08:31 | XMS_ITS | Encounter Summary ---
Author Organization [facility] Address [address] [place] [address] Phone Care Team Providers Care Buffing Wheel Operator Name Role Phone Patti Gonzalez Unavailable [phone] Sharif Bautista DO Unavailable Cheryl Travis CNM Unavailable Roscoe Low DO Unavailable [phone] Kelly Rush MANAGER MORTGAGE Unavailable Carmen Rodríguez MANAGER MORTGAGE Unavailable Nathaly Don MD Unavailable Denice Morales MANAGER MORTGAGE Unavailable [phone] Sharif Bautista DO Primary Care Provider [phone] Encounter Details Date Type Department Care Team (Late st Contact Info) Description 04/15/2020 Ancillary Orders Virtual Department [address] [place] [address] Sharif Bautitsa DO [address] [place] [address] [place] [address] Breast cancer screening by mammogram Social History Tobacco Use Types Packs/Day [...] MAMMOGRAM SCREENING WITH TOMOSYNTHESIS WITH CAD (BILATERAL) (06/17/2020 11:46 AM EDT) Anatomical Region Laterality Modality Breast Left, Breast Right, Breast Bilateral Bila teral Mammography 06/17/2020 12:1 5 PM EDT Impressions 06/17/2020 12:18 PM EDT No mammographic evidence of malignancy. BI-RADS CATEGORY: 2 - Benign finding. DENSITY: There are scattered fibroglandular densities. Narrative 06/17/2020 12:18 PM EDT Standard digital full-field 2-D C view and two-plane tomographic imaging was performed and compared with multiple prior studies, most recently 09/02/2018, with utilization of computer-aided detection. The breasts are composed of scattered fibroglandular densities. The stromal markings are essentially unchanged in overall appearance and distribution. No dominant spiculated mass, suspicious clustered microcalcifications, or focal zone of pathologic skin thickening or retraction are noted to have arisen in the interim. Extensive punctate benign intradermal microcalcifications are again seen bilaterally with interval development of a benign eggshell type macrocalcification in the retroareolar tissues on the right. Procedure Note Meagan Guaman MD - 06/17/2020 Standard digital full-field 2-D C view and two-plane tomographic imagingwas performed and compared with multiple prior studies, most gcgbfshe06/30/2018, with utilization of computer-aided detection. The breasts are composed of scattered fibroglandular densities. Thestromal markings are essentially unchanged in overall appearance anddistribution. No dominant spiculated mass, suspicious clusteredmicrocalcifications, or focal zone of pathologic skin thickening orretraction are noted to have arisen in the interim. Extensive punctatebenign intradermal microcalcifications are again seen bilaterally withinterval development of a benign eggshell type macrocalcification in theretroareolar tissues on the right. IMPRESSION: No mammographic evidence of malignancy. BI-RADS CATEGORY: 2 - Benign finding. DENSITY: There are scattered fibroglandular densities. Sharif Bautista DO IMG MG EXAMS Final Result documented in this encounter Visit Diagnoses Diagnosis Breast cancer screening by mammogram Breast cancer screening by mammogram documented in this encounter Care Teams Buffing Wheel Operator Relationship Specialty Start Date End Date ZeusSharif pittmanDO [address] [place] [address] PCP - General Internal Medicine 08/31/17 Patti Gonzalez PA [address] [place] [address] Historical LMR Provider 07/19/17 2 Sharif Bautista MonikDO [address] [place] [address] Historical LMR Provider 07/19/17 Cheryl Travis CNM [address] [place] [address] Historical LMR Provider 07/19/17 10/11/21 Roscoe Low DO [address] [place] [address] Orthopedics & Sports Medicine, [facility] [place] [address] Historical LMR Provider 07/19/17 10/11/21 Kelly Rush NP [address] [place] [phone] Historical LMR Provider 07/19/17 2 Carmen Rodríguez NP [address] [place] [address] [email or web address] Historical LMR Provider 07/19/17 2 Nathaly Don MD [address] [place] [address] [address] [place] [address] [email or web address] Historical LMR Provider 07/19/17 Denice Morales NP [address] [place] [address] Historical LMR Provider 07/19/17 2 documented as of this encounter Additional Source Comments The information contained in this document represents components of the legal health record. It is not the complete legal health record.[facility]
--- OUTSIDE RECORDS SUMMARY | 2025-08-28 08:31 | XMS_ITS | Encounter Summary ---
Author Organization [facility] Address [address] [place] [address] Phone Care Team Providers Care Manager Of Drilling Name Role Phone Sharif Bautista DO Unavailable Nathaly Don MD Unavailable Sharif Bautista DO Primary Care Provider [phone] Encounter Details Date Type Department Care Team (Late st Contact Info) Description 05/30/2025 Procedure Pass [facility] Endoscopy Admitting Dept Virtual Department [address] [place] [address] Social History Tobacco Use Types Packs/Day Years [...] on filedocumented in this encounter Care Teams Manager Of Drilling Relationship Specialty Start Date End Date Sharif Bautista DO PCP - General Internal Medicine 08/31/17 Sharif Bautista DO Historical LMR Provider 07/19/17 Nathaly Don MD [address] [place] [address], [address] [address] Historical LMR Provider 07/19/17 documented as of this encounter Additional Source Comments The information contained in this document represents components of the legal health record. It is not the complete legal health record.[facility]
--- OUTSIDE RECORDS SUMMARY | 2025-08-28 08:31 | XMS_ITS | Encounter Summary ---
Author Organization [facility] Address [address] [place] [address] Phone Care Team Providers Care Plastics And Composites Inspector Name Role Phone Patti Gonzalez Unavailable [phone] Sharif Bautista DO Unavailable Cheryl Travis CNM Unavailable Roscoe Low DO Unavailable [phone] Kelly Rush COPY CENTER SPECIALIST Unavailable Carmen Rodríguez COPY CENTER SPECIALIST Unavailable Nathaly Don MD Unavailable Denice Morales COPY CENTER SPECIALIST Unavailable [phone] Sharif Bautista DO Primary Care Provider [phone] Encounter Details Date Type Department Care Team (Late st Contact Info) Description 01/03/2020 Procedure Pass [facility] Endoscopy Admitting Dept Virtual Department [address] [place] [address] Social History Tobacco Use Types Packs/Day Years [...] on filedocumented in this encounter Care Teams Plastics And Composites Inspector Relationship Specialty Start Date End Date [place] [address] PCP - General Internal Medicine 08/31/17 Patti Gonzalez PA [address] [place] [address] Historical LMR Provider 07/19/17 2 Sharif Bautista DO [address] [place] [address] Historical LMR Provider 07/19/17 Cheryl Travis CNM [address] [place] [address] Historical LMR Provider 07/19/17 10/11/21 Roscoe Low DO [address] [place] [address] Orthopedics & Sports Medicine, [place] [address] Historical LMR Provider 07/19/17 10/11/21 Kelly Rush NP [address] [place] [phone] Historical LMR Provider 07/19/17 2 Carmen Rodríguez NP [address] [place] [address] [phone] [email or web address] Historical LMR Provider 07/19/17 2 Nathaly Don MD [address] [place] [address] [phone] [email or web address] Historical LMR Provider 07/19/17 Denice Morales NP [address] [place] [address] Historical LMR Provider 07/19/17 2 documented as of this encounter Additional Source Comments The information contained in this document represents components of the legal health record. It is not the complete legal health record.[facility]
--- OUTSIDE RECORDS SUMMARY | 2025-08-28 08:31 | XMS_ITS | Data Portability ---
Author Organization [facility] Telehealth Patient Home Address [address] [place] [address] Assessment No assessment recorded. Plan of Treatment Reminders Order Date Submit Date Provider Last Modified By Organization Details Last Modified Time Details Appointments ANNUAL EXAM 2024 09:00A M NIALL SORTO Not available Not available Not available Lab None recorded. Referral gastroent erologist referral - every 5 year screen 2023 024 [email or web address] Not available 09/08/2024 08:28:22 Procedures None recorded. Surgeries None recorded. Imaging None recorded. Medication Orders lovastati n 40 mg tablet 2023 024 [facility] #2024, [address] [place], [address], 09/06/2024 09:10:23 lovastati n 40 mg tablet 2022 023 [facility] #2024, [address] [place], [address], 09/01/2023 08:57:47 lovastati n 40 mg tablet 2021 022 [facility] #2024, [address] [place], [address], 08/31/2022 09:09:20 lovastati n 40 mg tablet 2020 021 [id number], [address] [place] [address], [id number], 08/27/2021 09:07:20 amlodipin e 5 mg tablet 2020 021 [email or web address] [facility]61198, [address], [place], [id number], 08/31/2022 08:53:52 amlodipin e 5 mg tablet 2019 020 [email or web address] [facility] #[id number], [address], [place], [id number], 08/31/2022 08:53:52 lovastati n 40 mg tablet 2019 020 INTERFACE [id number], [address], [place], [id number], 07/30/2020 09:18:45 Patient TargetsNo targets recorded. Patient InstructionsNo instructions recorded. 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 [email or web address] [facility] Radiology (Mammo) [address] [place] [address], [address], 04/15/2022 06:56:34 01/19/20 24 01/19/2024 MAMMO , scree sindhu, digit al, bilat eral No observ ation record ed. [email or web address] [address], [address], 01/20/2024 08:59:13 Result Notes None recorded. Problems Name Problem SNOMED Code Status Onset Date Resolution Date Notes Provider Name and Address Organization Details Recorded Time Hypercholester olemia 53259155 Active 2017 Not Available [facility] 3 12:21:11 Blood pressure above reference range 09489044 Active 2017 Not Available [facility] 3 12:21:11 Problem Notes None recorded. Procedures Surgical History Date Name Laterality Status Provider Name and Address Organization Details Recorded Time 05/30/20 25 Colonoscopy completed Sharif Bautista, DO [address] [facility], [place], [address], [facility] 05/30/2025 10:59:20 Imaging Results None recorded. Procedure Notes None recorded. Medical Equipment None Reported. Allergies No known drug allergies Medications Name Sig Start Date Stop Date Status Note LastModified by Organization Details LastModified Time lovastatin 40 mg tablet TAKE 1 TABLET BY MOUTH EVERY DAY 2023 active Not Available Not Available Not Avai lable amlodipine 5 mg tablet TAKE 1 TABLET BY MOUTH EVERY DAY 08/31 completed Not Available Not Available Not Available clobetasol 0.05 % topical ointment APPLY TOPICALLY ONCE A WEEK. USE A PEA SIZED AMOUNT. active Not Available Not Available No t Available Pneumovax-2 3 25 mcg/0.5 mL injection syringe 07/30 completed Not Available Not Available Not Available Shingrix (PF) 50 mcg/0.5 mL intramuscul ar suspension, kit 07/30 completed Not Available Not Available Not Available Fluad 2018- 65yr up(PF)45 mcg(15 mcgx3)/0.5 mL intramuscul ar syringe 07/30 completed Not Available Not Available Not Available Fluzone High-Dose Quad (PF) 240 mcg/0.7 mL IM syringe 07/30 completed Not Available Not Available Not Available Vitals Date Recorded Body height Body mass index (BMI) Body weight Heart rate Oxygen saturation Systolic And Diastolic Provider Name and Address Organization Details Last Updated DateTime 0 165.1 cm 22.7 kg/m2 76403.2 8 g 90 /min 98 % 130/70 mm[Hg] Adelina Pineda [facility] 0 08:58:56 Date Recorded Body height Body mass index (BMI) Body weight Oxygen saturation Heart rate Systolic And Diastolic Provider Name and Address Organization Details Last Updated DateTime 1 165.1 cm 21.1 kg/m2 45003.1 5 g 99 % 74 /min 128/78 mm[Hg] Tamaracarroll العراقيner [facility] 1 08:59:03 Date Recorded Body height Body mass index (BMI) Body weight Heart rate Oxygen saturation Systolic And Diastolic Provider Name and Address Organization Details Last Updated DateTime 2 163.2 cm 21.1 kg/m2 59552.8 1 g 81 /min 98 % 124/64 mm[Hg] Princess Anne [facility] 2 08:55:35 Date Recorded Body height Body mass index (BMI) Body weight Heart rate Oxygen saturation Systolic And Diastolic Provider Name and Address Organization Details Last Updated DateTime 3 162.56 cm 20.9 kg/m2 26964.2 7 g 80 /min 99 % 140/70 mm[Hg] Sharifa Zan [facility] 3 08:51:17 Date Recorded Body height Body mass index (BMI) Body weight Heart rate Oxygen saturation Systolic And Diastolic Provider Name and Address Organization Details Last Updated DateTime 4 162.56 cm 21.3 kg/m2 83080.4 5 g 75 /min 97 % 150/100 mm[Hg] Sharifa Zan [facility] 4 08:58:37 Social History Question Answer Notes LastModified by [facility] Details LastModified Time Tobacco Smoking Status Never Smoker Not Available [facility] 08/06/2020 03:36:23 What Is Your Level Of Caffeine Consumption? Moderate 2 Cups Per Day [id number] Information not available 08/06/2020 What Was The Date Of Your Most Recent Tobacco Screening? 09/06/2024 [email or web address] Information not available 09/06/2024 Sex: Unknown Functional Status Question Answer Note LastModified by [facility] Details LastModified Time Do you or have you ever used any other forms of tobacco or nicotine? No [email or web address] Information not available 09/01/2023 What is your level of alcohol consumption? Occasional 1 drink per month [id number] Information not available 08/06/2020 What is your exercise level? Moderate bicycling, walking [id number] Information not available 08/06/2020 Mental Status None recorded. Family History Nothing Reported. Medical History Condition Response Coronary Artery Disease N Other N Gout N Blood Diseases N Kidney Stones N Blood Transfusion N Breast Cancer N Depression N COPD N Lung Disease N Defects or Inherited Disease N Anxiety Disorder N Muscle, Joint, or Bone Problems N Obesity N Vision or Eye Problems N Arthritis N Polyps N Infertility N Mental Disorder N Cancer N Varicosities N Stroke N Endometriosis N Bladder or Kidney Problems N High Cholesterol N Liver Disease N Fibromyalgia N Headaches N Kidney Disease N Allergies/Hayfever N Heart Problems N Hospitalizations N Thyroid Problems N GI Problems N Skin Problems N Eating Disorder N Anemia N MRSA exposure N Constipation N Mental Illness N Ovarian Cancer N Diabetes N Seizures/Epilepsy N Tuberculosis N Congestive Heart Failure (CHF) N Eczema N Diverticulitis N Abuse/Domestic Violence N Asthma N Reflux/GERD N Hepatitis N Heart Disease N Pulmonary Embolism N Hypertension N Osteoporosis N Chicken Pox N Autism Spectrum Disorder (ASD) N Gynecological HistoryNo gynecological history recorded. Obstetrics History GPAL:G 0 P 0 0 0 0 Immunizations Vaccine Type Date Status Note Provider Nam e and Address Organization Details Recorded Time Influenza, split virus, quadrivalent, preservative 06/03/20 21 completed Not Available [facility] 12/12/2022 12:21:11 Influenza, split virus, quadrivalent, preservative 06/03/20 21 completed Not Available [facility] 12/12/2022 12:21:11 COVID-19, mRNA, LNP-S, PF, 30 mcg/0.3 mL dose 01/05/20 21 completed Not Available [facility] 12/12/2022 12:21:11 COVID-19, mRNA, LNP-S, PF, 30 mcg/0.3 mL dose 01/26/20 21 completed Not Available [facility] 12/12/2022 12:21:11 COVID-19, mRNA, LNP-S, PF, 30 mcg/0.3 mL dose 08/27/20 21 completed Not Available [facility] 12/12/2022 12:21:11 Pneumococcal conjugate PCV 13 07/19/20 18 completed Not Available [facility] 12/12/2022 12:21:11 Tdap 07/19/20 18 completed Not Available [facility] 12/12/2022 12:21:11 influenza, unspecified formulation 07/28/20 22 completed Not Available [facility] 12/12/2022 12:21:11 influenza, unspecified formulation 07/04/20 23 completed NIALL SORTO [address] [place], [address], [facility] 09/01/2023 08:58:44 Influenza, split virus, quadrivalent, preservative 05/26/20 19 completed Not Available [facility] 12/12/2022 12:21:11 pneumococcal polysaccharide PPV23 08/14/20 19 completed Not Available [facility] 12/12/2022 12:21:11 Influenza, split virus, quadrivalent, preservative 05/21/20 20 completed Not Available [facility] 12/12/2022 12:21:11 zoster, unspecified formulation 05/21/20 20 completed Not Available [facility] 12/12/2022 12:21:11 zoster recombinant 07/21/20 20 completed Not Available [facility] 12/12/2022 12:21:11 Influenza, split virus, quadrivalent, preservative 05/18/20 18 completed Not Available [facility] 12/12/2022 12:21:11 Past Encounters Encounter ID Performer Location Encounter Start Date Encounter Closed Date Diagnosis/Indication Diagnosis SNOMED-CT Code Diagnosis ICD10 Code Diagnosis IMO Codes Diagnosis Note [id number] Sharif Bautista DO [facility] Internal [facility] [address] [place] [address] [place] [address] 07/19/2018 08:53:19 07/19/2018 09:27:02 Adult health examination 663992039 Z00.00 doing well overall Active or passive immunization 308881625 Z23 will get pneumop and tdap and shing Screening for malignant neoplasm of colon 751587137 Z12.11 Screening for osteoporosis 616982515 Z13.820 schedule Screening mammography 24 593620 Z12.31 scheduled already [id number] Sharif Bautista DO [facility] Internal Medicine [address] [place] [address],[place] [address] 07/25/2019 08:53:49 07/25/2019 13:32:41 Adult health examination 416164509 Z00.00 doing well overall recc vaccines not sure why she is osteoporot ic in right hip while left and LS spine are much improved.. ... 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 and mammp reviewed lab all good Essential hypertension 57269269 I10 stable no issues [id number] Sharif Bautista [facility] Internal Medicine [address] [facility] [address] [address] 08/27/2021 08:50:57 08/27/2021 09:29:04 Active or passive immunization 955636124 Z23 advised Adult heal th examination 212118153 Z00.00 BP is excellent today the patient would like to come off of it at some point to see if her BP is controlled Essential hypertension 82078896 I10 BP is excellent Hypercholesterolemia 136 34536 E78.2 will fu after [place] gets [place] from [place] [id number] Sharif Bautista [facility] Internal Medicine [address] [facility],[place] [address] 08/31/2022 08:44:34 08/31/2022 09:35:34 Active or passive immunization 437551516 Z23 advised Adult heal th examination 940783332 Z00.00 BP is excellent today still without medication Hypercholesterolemia 136 32365 E78.2 will fu after she gets back from [place] [id number] Sharif Bautista [facility] Internal Medicine [address] [facility] [address] [address] 09/01/2023 08:44:34 09/01/2023 09:32:03 Blood pressure above reference range 41028321 R03.0 BP recheck was 132/74 in the R arm after 15 minutes Hypercholesterolemia 136 45004 E78.2 stable with recent check Adult [facility] th examination 621610784 Z00.00 BP is excellent today still without medication [id number] Sharif Bautista DO [facility] Internal Medicine [address] [facility] [address],[place] [address] 09/06/2024 08:54:26 09/06/2024 09:16:55 Screening for malignant neoplasm of colon 883560002 Z12.11 needs new GI Adult heal th examination 029588418 Z00.00 BP is excellent today still without medication Hypercholesterolemia 136 24768 E78.2 stable with recent check Health Concerns Section Related Observation LastModified by Organization Detai ls LastModified Time None Recorded Concern Status LastModified by Organization Details LastModified Time None Recorded Advance Directives Directive None Recorded Payers Insurance Date Sequence Insurance Name Policy Number Policy Bourne Covered Member ID Bourne Member ID Guarantor Name 08/31/2024 2 [place] Apurva Ponce [id number] pAurva Ponce 08/31/2024 1 [facility] [id number] Apurva Ponce [id number] Apurva Ponce 09/03/2024 1 [facility] (MEDICARE REPLACEMENT PPO) [id number] Apurva Ponce [id number] Apurva Ponce Notes Date Note Type Note Provider Name a nh Address Organization Details Recorded Time 0 text/html Annual WellnessReported by PatientSocial/Behavio ral HistoryFor diet and nutrition, patient reportshealthy diet. For fracture risk, patient reportsno history of fractures,no recent explained fracture,no sudden unexplained fractures, andno previous musculoskeletal injuries. For physical activity, patient reportsexercises on a regular basis,recent increase in physical activity, andgood physical condition. For additional lifestyle factors, patient reportsno tobacco use,no alcohol intake, andstopped drinking alcohol.Mental Status:For depression risk, patient reportsnever feels sad, empty, or tearful,no loss of interest in activities,no significant changes in weight,no sleep disturbances or insomnia,no agitation,no loss of energy,no feelings of worthlessness or guilt,no thoughts of suicide,no history of depression, andno history of mood disorders.Functional AbilityFor hearing, patient reportsno loss of hearing. For vision, patient reportsno vision problems.ROS as noted in the HPI Sharif Bautista DO [address] [facility], [place], [address], [facility] 07/30/2020 09:19:48 1 text/html Annual WellnessReported by PatientSocial/Behavio ral HistoryFor diet and nutrition, patient reportshealthy diet,discussed vitamin and supplement use,discussed portion control,discussed maintaining calcium balance, anddiscussed diet improvement. For fracture risk, patient reportsno history of fractures,no recent explained fracture,no sudden unexplained fractures, andno previous musculoskeletal injuries. For physical activity, patient reportsexercises on a regular basis,recent increase in physical activity, andgood physical condition. For additional lifestyle factors, patient reportsno tobacco useanddrinks alcohol (mild-moderate).Menta l Status:For depression risk, patient reportsnever feels sad, empty, or tearful,no loss of interest in activities,no significant changes in weight,no sleep disturbances or insomnia,no agitation,no loss of energy,no feelings of worthlessness or guilt,no thoughts of suicide,no history of depression, andno history of mood disorders.Functional AbilityFor hearing, patient reportsno loss of hearing. For vision, patient reportsno vision problems. NIALL SORTO [address] [place], [address], [facility] 08/27/2021 09:21:49 2 text/html Annual WellnessReported by PatientSocial/Behavio ral HistoryFor diet and nutrition, patient reportshealthy diet,discussed vitamin and supplement use,discussed portion control,discussed maintaining calcium balance, anddiscussed diet improvement. For fracture risk, patient reportsno history of fractures,no recent explained fracture,no sudden unexplained fractures, andno previous musculoskeletal injuries. For physical activity, patient reportsexercises on a regular basis,recent increase in physical activity,good physical condition,discussed weightbearing activities, anddiscussed exercise habits(working on diet and exercise doing really). For additional lifestyle factors, patient reportsno tobacco useanddrinks alcohol (mild-moderate).Menta l Status:For depression risk, patient reportsnever feels sad, empty, or tearful,no loss of interest in activities,no significant changes in weight,no sleep disturbances or insomnia,no agitation,no loss of energy,no feelings of worthlessness or guilt,no thoughts of suicide,no history of depression, andno history of mood disorders.Functional AbilityFor hearing, patient reportsno loss of hearing. For vision, patient reportsno vision problems. BW is perfect NIALL SORTO [address] [place], [address], [facility] 08/31/2022 09:16:03 3 text/html Annual WellnessReported by PatientSocial/Behavio ral HistoryFor diet and nutrition, patient reportshealthy diet,discussed vitamin and supplement use,discussed portion control,discussed maintaining calcium balance, anddiscussed diet improvement. For fracture risk, patient reportsno history of fractures,no recent explained fracture,no sudden unexplained fractures, andno previous musculoskeletal injuries. For physical activity, patient reportsexercises on a regular basis,recent increase in physical activity, andgood physical condition. For additional lifestyle factors, patient reportsno tobacco useandno alcohol intake.Mental Status:For depression risk, patient reportsnever feels sad, empty, or tearful,no loss of interest in activities,no significant changes in weight,no sleep disturbances or insomnia,no agitation,no loss of energy,no feelings of worthlessness or guilt,no thoughts of suicide,no history of depression, andno history of mood disorders.Functional AbilityFor hearing, patient reportsno loss of hearing. For vision, patient reportsno vision problems(goes every two years). had her lab work done BW is all w/n/l, medications working well has Mammogram scheduled in January NIALL SORTO [address] [place], [address], [facility] 09/01/2023 09:10:26 4 text/html Annual WellnessReported by PatientSocial/Behavio ral HistoryFor diet and nutrition, patient reportshealthy diet,discussed vitamin and supplement use,discussed portion control,discussed maintaining calcium balance, anddiscussed diet improvement. For fracture risk, patient reportsno history of fractures,no recent explained fracture,no sudden unexplained fractures, andno previous musculoskeletal injuries. For physical activity, patient reportsexercises on a regular basis,recent increase in physical activity, andgood physical condition. For additional lifestyle factors, patient reportsno tobacco useanddrinks alcohol (mild-moderate).Menta l Status:For depression risk, patient reportsnever feels sad, empty, or tearful,no loss of interest in activities,no significant changes in weight,no sleep disturbances or insomnia,no agitation,no loss of energy,no feelings of worthlessness or guilt,no thoughts of suicide,no history of depression, andno history of mood disorders.Functional AbilityFor hearing, patient reportsno loss of hearing. For vision, patient reportsno vision problems.ROS as noted in the HPI the patient is needing a new GI for her 5 yr colonoscopy NIALL SORTO [address] [place] [address], [place], [address], [facility] 09/06/2024 09:16:22 OBGyn Episode No OBEpisode recorded.
[2025-08-28 13:27] LABS: MANUAL DIFF FLAG NO
[2025-08-28 13:35] LABS: Hematocrit 43.1 % (37.0-47.0); Hemoglobin 13.7 g/dl (12.0-16.0); Imm Gran Abs Auto 0.02 X10*3/uL (0.00-0.03); Imm Gran Pct Auto 0.4 % (0.0-0.4); Lymphocytes Absolute Auto 1.2 X10*3/uL (1.2-4.9); Mean Corpuscular HGB Conc 31.8 g/dl (31.0-35.0); Mean Corpuscular Hemoglobin 29.3 pg (27.0-33.0); Mean Corpuscular Volume 92.1 fL (80.0-98.0); NRBC Abs Auto 0.000 X10*3/uL (0.0-0.012); NRBC Pct Auto 0.0 /100WBC (0.0-0.2); Platelet Count 330 X10*3/uL (160-400); Red Blood Count 4.68 X10*6/uL (4.20-5.50); White Blood Count 5.0 X10*3/uL (4.8-10.8)
[2025-08-28 13:49] LABS: Alanine Aminotransferase 22 U/L (0-31); Albumin Level 4.7 g/dL (3.5-5.0); Alkaline Phosphatase 67 U/L (39-117); Anion Gap 12 (12-20); Aspartate Amino Transferase 25 U/L (5-31); Blood Urea Nitrogen 9 mg/dL (9-16); Calcium 9.1 mg/dL (8.4-10.2); Carbon Dioxide 27 mmol/L (22-29); Chloride 108 mmol/L (96-108); Cholesterol 198 mg/dL (<200); Estimated Glomerular Filt Rate > 60; HDL Cholesterol 53 mg/dL (>40); Potassium 3.8 mmol/L (3.3-5.1); Sodium 143 mmol/L (135-145); Total Protein 7.0 g/dL (6.5-8.0); Triglycerides 107 mg/dL (<150)
== END 2025-08-28 08:17 | disposition home or self-care (01) ==
LOC: HO.MANLDS 08:16
PROVIDERS: Visit Provider Physician Assistant
DX: Z00.00 Encounter for general adult medical examination without abnormal findings (principal); Z13.6 Encounter for screening for cardiovascular disorders
CPT/HCPCS: 36415; 80053; 80061; 85025